=== PATIENT | male | born 1995 | race Caucasian/White ===

== ENCOUNTER 2017-09-28 22:57 | Emergency (ER) | payer MEDICAID ==
[2017-09-28] MEDS: KETOROLAC 30 MG INJ IM (23:46)
== END 2017-09-29 01:15 | disposition home or self-care (01) ==
LOC: FTE 09-29 01:15
DX: M25.512 Pain in left shoulder (principal)
CPT/HCPCS: 73030; 96372; 99284-25

== ENCOUNTER 2017-11-03 19:24 | Emergency (ER) | payer MEDICAID ==
[2017-11-03] MEDS ORDERED: HYDROCODONE/APAP (5/325) TAB PO (20:30)
[2017-11-03] MEDS ORDERED: BACITRACIN 0.9 GM OINT TOP (20:30)
== END 2017-11-03 20:42 | disposition left against medical advice (07) ==
LOC: FTE 20:42
DX: T20.06XA Burn of unspecified degree of forehead and cheek, initial encounter (principal); S00.12XA Contusion of left eyelid and periocular area, initial encounter; V89.2XXA Person injured in unspecified motor-vehicle accident, traffic, initial encounter; X19.XXXA Contact with other heat and hot substances, initial encounter; Y92.9 Unspecified place or not applicable
CPT/HCPCS: 99282; Z7502

== ENCOUNTER 2018-11-25 13:11 | Emergency (ER) | payer OTHER, MEDICAID ==
[2018-11-25 18:08] LABS: ADD MAN DIFF? NO
[2018-11-25 18:10] LABS: BASOPHILS % 0.3 % (0.0-2.0); EOSINOPHILS # 0.1 10^3/ul (0.0-0.5); EOSINOPHILS % 1.4 % (0.0-7.0); HEMATOCRIT 43.7 % (42.0-52.0); HEMOGLOBIN 15.3 g/dl (14.0-18.0); LYMPHOCYTES # 1.6 10^3/ul (0.8-2.9); LYMPHOCYTES % 22.4 % (15.0-51.0); MEAN CORPUSCULAR HEMOGLOBIN 30.5 pg (29.0-33.0); MEAN CORPUSCULAR VOLUME 87.2 fl (82.0-101.0); MEAN PLATELET VOLUME 9.7 fl (7.4-10.4); MONOCYTE # 0.7 10^3/ul (0.3-0.9); NEUTROPHIL # 4.8 10^3/ul (1.6-7.5); NEUTROPHILS % 66.6 % (39.0-77.0); PLATELET COUNT 203 10^3/UL (140-415); RED BLOOD COUNT 5.01 10^6/ul (4.70-6.10); RED CELL DISTRIBUTION WIDTH 12.7 % (11.5-14.5)
[2018-11-25 18:10] LABS: WHITE BLOOD COUNT 7.2 10^3/ul (4.8-10.8)
[2018-11-25 18:29] LABS: ALANINE AMINOTRANSFERASE 247 IU/L (13-69); ALBUMIN 4.8 g/dl (3.3-4.9); ALBUMIN/GLOBULIN RATIO 1.26; ALKALINE PHOSPHATASE 90 IU/L (42-121); ANION GAP 9 (5-13); BILIRUBIN,INDIRECT 0.9 mg/dl (0-1.1); BILIRUBIN,TOTAL 0.9 mg/dl (0.2-1.3); BLOOD UREA NITROGEN 18 mg/dl (7-20); CARBON DIOXIDE 28 mmol/L (21-31); CHLORIDE 103 mmol/L (97-110); Estimated GFR > 60 mL/min (>60); GLUCOSE 101 mg/dl (70-220); POTASSIUM 4.7 mmol/L (3.5-5.1); SODIUM 140 mmol/L (135-144); TOTAL PROTEIN 8.6 g/dl (6.1-8.1)
[2018-11-25 18:33] LABS: AMPHETAMINE/METHAMPHETAMINE Negative (NEGATIVE); BARBITURATES Negative (NEGATIVE); BENZODIAZEPINES Negative (NEGATIVE); CANNABINOIDS Negative (NEGATIVE); COCAINE Negative (NEGATIVE); OPIATES Negative (NEGATIVE)
[2018-11-25 18:37] LABS: ADD UMIC NO; UR ASCORBIC ACID 40 mg/dL (NEGATIVE); UR BILIRUBIN (Dip) NEGATIVE (NEGATIVE); UR BLOOD (Dip) NEGATIVE (NEGATIVE); UR CLARITY SLIGHTLY CLOUDY (CLEAR); UR COLOR YELLOW (YELLOW); UR GLUCOSE (Dip) NEGATIVE (NEGATIVE); UR KETONES (Dip) 1+ mg/dL (NEGATIVE); UR LEUKOCYTE ESTERASE (Dip) NEGATIVE Leu/ul (NEGATIVE); UR MUCUS MANY /HPF (NONE SEEN); UR NITRITE (Dip) NEGATIVE (NEGATIVE); UR RBC 3 /HPF (0-5); UR TOTAL PROTEIN (Dip) NEGATIVE (NEGATIVE); UR UROBILINOGEN (Dip) NEGATIVE (NEGATIVE); UR WBC 8 /HPF (0-5)
[2018-11-25 18:42] LABS: ACETAMINOPHEN < 10.0 ug/ml (10.0-30.0); ASPARTATE AMINO TRANSFERASE 763 IU/L (15-46); ETHANOL < 10.0 mg/dl (0-0); SALICYLATE < 1.0 mg/dl (5.0-30.0)
[2018-11-25] MEDS: RISPERIDONE 1 MG TAB PO (23:20)
== END 2018-11-25 23:23 | disposition home or self-care (01) ==
LOC: E/R 13:11
DX: R44.0 Auditory hallucinations (principal); R74.8 Abnormal levels of other serum enzymes; R40.2142 Coma scale, eyes open, spontaneous, at arrival to emergency department; R40.2362 Coma scale, best motor response, obeys commands, at arrival to emergency department; R40.2252 Coma scale, best verbal response, oriented, at arrival to emergency department
CPT/HCPCS: 36415; 80053; 80307; 81001; 81003; 85025; 99283